=== PATIENT | female | born 1995 | race Caucasian/White ===

== ENCOUNTER 2021-03-09 19:48 | Emergency (ER) | payer OTHER, BC ==
[2021-03-09] MEDS ORDERED: IBUPROFEN600 MG PO (23:39)
[2021-03-09] MEDS ORDERED: HYDROCODON-ACE1 EAC4 PO (23:39)
== END 2021-03-09 23:51 | disposition home or self-care (01) ==
LOC: ER1 19:48
DX: S22.41XA Multiple fractures of ribs, right side, initial encounter for closed fracture (principal); M25.561 Pain in right knee; M25.562 Pain in left knee; M79.604 Pain in right leg; V86.69XA Passenger of other special all-terrain or other off-road motor vehicle injured in nontraffic accident, initial encounter; Y92.410 Unspecified street and highway as the place of occurrence of the external cause
CPT/HCPCS: 71045; 72125; 72128; 72131; 72170; 73562; 73590; 81001; 84703; 96372; 99284; J1885